=== PATIENT | male | born 1965 | race Caucasian/White ===

== ENCOUNTER 2021-05-09 13:54 | Emergency (ER) | payer MEDICAID, OTHER ==
[~2021-05-09] VITALS: Ht 182.9 cm; Wt 83.9 kg
[2021-05-09 14:10] VITALS: BP 125/95
== END 2021-05-09 17:30 ==
LOC: ER 13:54
DX: S20.211A Contusion of right front wall of thorax, initial encounter (principal); S00.01XA Abrasion of scalp, initial encounter; Y04.2XXA Assault by strike against or bumped into by another person, initial encounter; Y93.89 Activity, other specified; Y92.89 Other specified places as the place of occurrence of the external cause; Y99.8 Other external cause status
CPT/HCPCS: 70450; 70486; 71101